=== PATIENT | female | born 1990 | race Caucasian/White ===

== ENCOUNTER 2019-02-09 08:22 | Inpatient (IN) | payer OTHER ==
--- NOTE | 2019-02-05 10:53 | PREOPHP ---
DATE OF ADMISSION: 02/09/2019 HISTORY OF PRESENT ILLNESS: A 27 years old female, 2, para 1 with an EDC of 02/16/2019. The patient is coming on the for the repeat . She had a previous section in 2013 . During this , she had an uneventful . She saw me at 18 weeks and she gained about 25 pounds in this . The was uneventful and she had a low partial pre via at the beginning of the that moved away. Otherwise, she had no complications and she i s scheduled for a repeat . PAST MEDICAL HISTORY: Uneventful except for her . FAMILY HISTORY: Her grandparents were diabetic. ALLERGIES: She is not allergic to any medications. SOCIAL HISTORY: She does not drink or smoke. MEDICATIONS: Currently on no medication except for vitamins. PHYSICAL EXAMINATION: VITAL SIGNS: She is 5 feet 6 inches, her weight is 174 and pulse is 80, respirations 16, and she is afebrile. HEAD AND NECK: Normal. CHEST: Clear. HEART: Normal sinus rhythm. LUNGS: Clear. BREASTS: Soft, nontender, no masses. ABDOMEN: Soft. Uterus at term and heart tones are normal. PELVIC: With no changes. EXTREMITIES: Normal with normal pulses and no edema. DIAGNOSES: 1. Term . 2. Previous section. PLAN: She is undergoing a repeat section. She has been advised of the possible risks and p ossible complications of the procedure with her alternatives and options. Written information was pr ovided. She had no more questions and agreed to go ahead with the procedure with full understanding and no more questions. Dictated By: BOBO HERNANDEZ/RICHARD Conf#: [id number] DID#: [id number]
[2019-02-09] VITALS (9 sets, daily range): BP systolic 93–103; BP diastolic 50–69; PULSE 61–87; RESP 16–20; Ht 162.6 cm; Wt 79.7 kg
[~2019-02-09] VITALS: Ht 162.6 cm; Wt 79.7 kg
[2019-02-09] MEDS ORDERED: MISOPROSTOL 200 MCG TAB PR PRN ×2 (09:00→12:00)
[2019-02-09] MEDS ORDERED: CEFAZOLIN 2 GM/50 ML (PMX) 50 ML IVPB SCH (09:00)
[2019-02-09] MEDS ORDERED: OXYTOCIN 30 UNITS/LR 500 ML IV PRN ×2 (09:00→12:00)
[2019-02-09] MEDS ORDERED: METHYLERGONOVINE 0.2 MG INJ IM PRN ×2 (09:00→12:00)
[2019-02-09] MEDS ORDERED: CARBOPROST 250 MCG INJ IM PRN ×2 (09:00→12:00)
[2019-02-09] MEDS: LACTATED RINGER'S 1,000 ML IV SCH (09:31)
--- NOTE | 2019-02-09 10:42 | PREAC ---
Date/Time of Note Date/Time of Note DATE: 02/09/19 TIME: 10:41 Anesthesia Eval and Record Evaluation Time Pre-Procedure Interview DATE: 02/09/19 TIME: 10:41 Age 28 Sex female NPO: 8 hrs Preoperative diagnosis PREVIOUS C SECTION Planned procedure REPEAT C SECTION Past Medical History Past Medical History: Includes : : (2), Para: (1), Gestational age: (39) Surgery & Anesthesia Issues No known issue Meds Anticoagulation: No Beta Stacy within 24 hr: No Reason Beta Stacy not given: Pt. not on B-Stacy Current Medications Lactated Ringer's 1,000 ml @ 125 mls/hr Q8H IV Last administered on 02/09/19at 09:31; Admin Dose 125 MLS/HR; Start 02/09/19 at 08:56 Cefazolin Sodium/ Dextrose 50 ml @ 100 mls/hr ONCE IVPB ; Start 02/09/19 at 09:00 Oxytocin/Lactated Ringer's 500 ml @ 0 mls/hr ONCE PRN IV .VAGINAL BLEEDING; Start 02/09/19 at 09:00 Methylergonovine Maleate (Methergine) 0.2 mg ONCE PRN IM .VAGINAL BLEEDING; Start 02/09/19 at 09:00 Carboprost Tromethamine (Hemabate) 250 mcg ONCE PRN IM .VAGINAL BLEEDING; Start 02/09/19 at 09:00 Misoprostol (Cytotec) 1,000 mcg ONCE PRN OR .VAGINAL BLEEDING; Start 02/09/19 at 09:00 Meds reviewed: Yes Allergies Coded Allergies: No Known Drug Allergies (Verified Allergy, Unknown, 02/09/19) Allergies Reviewed: Yes Labs/Studies Labs Reviewed: Reviewed by anesthesiologist Result Diagram: 02/09/19907 Laboratory Tests 02/09/19 09:08 test: N/A Pre-procedure Exam Last vitals Vital Signs Date Temp Pulse Resp B/P (MAP) Pulse Ox O2 O2 Flow FiO2 Time Delivery Rate 02/09/19 98.8 87 18 99/55 (70) Room Air 08:54 Airway: Adequate mouth opening, Adequate thyromental dist Mallampati: Mallampati II Teeth: Normal Lung: Normal Heart: Normal ASA Physical Status ASA physical status: 2 Emergency: None Planned Anesthetic Neuraxial: Epidural Planned Pain Management Epidural Pre-operative Attestations Prior to commencing anesthesia and surgery, the patient was re-evaluated, there was verification of: *The patient's identity *The results of appropriate recent lab work and preoperative vital signs *The above evaluation not changing prior to induction *Anesthetic plan, risk benefits, alternative and complications discussed with patient/family; questions answered; patient/family understands, accepts and wishes to proceed. Ankur Guzmán M.D. Feb 09, 2019 10:42
[2019-02-09] MEDS ORDERED: CITRIC ACID/NA CITRATE 30 ML CUP ONE (11:05)
[2019-02-09] MEDS ORDERED: ONDANSETRON 4 MG INJ ONE (11:06)
[2019-02-09] MEDS ORDERED: CITRIC ACID/NA CITRATE 30 ML CUP PO ONE (11:08)
[2019-02-09] MEDS ORDERED: ONDANSETRON 4 MG INJ IV STA (11:08)
[2019-02-09] MEDS: CEFAZOLIN 2 GM/50 ML (PMX) 50 ML IVPB SCH ×2 (11:24→23:24)
[2019-02-09] MEDS ORDERED: OXYTOCIN 10 UNIT INJ ONE (11:27)
[2019-02-09] MEDS ORDERED: morphine SULFATE/PF (10 MG/10 ML) INJ ONE (11:27)
[2019-02-09] MEDS ORDERED: METOCLOPRAMIDE 10 MG INJ ONE (11:27)
[2019-02-09] MEDS ORDERED: OXYTOCIN 30 UNITS/LR 500 ML IV SCH (11:35)
[2019-02-09] MEDS ORDERED: LACTATED RINGER'S 1,000 ML IV SCH (11:35)
--- NOTE | 2019-02-09 11:48 | SIPON ---
Date/Time of Note Date/Time of Note DATE: 02/09/19 TIME: 11:46 Operative Report Preoperative Diagnosis Term Previous Postoperative Diagnosis Same Operation/Procedure Performed Repeat low segment transverse section Surgeon see signature line or first assist registered nurse DR HAAS Anesthesia: spinal Estimated blood loss: other Transfusion Required none Specimen PLACENTA Grafts/Implants none Complications none BOBO JORGENSEN MD Feb 09, 2019 11:48
[2019-02-09] MEDS ORDERED: HYDROCODONE/APAP (5/325) TAB PO PRN ×2 (12:00)
[2019-02-09] MEDS ORDERED: MEPERIDINE 25 MG INJ IV PRN (12:00)
[2019-02-09] MEDS ORDERED: DIPHENHYDRAMINE 50 MG INJ IV PRN ×2 (12:00)
[2019-02-09] MEDS ORDERED: IPRATROPIUM (NEB) 0.5 MG/2.5 ML AMP HHN PRN (12:00)
[2019-02-09] MEDS ORDERED: MIDAZOLAM 1 MG/ML 2 ML INJ IV PRN (12:00)
[2019-02-09] MEDS ORDERED: HYDROmorphONE 1 MG/5 ML IV SYRINGE IV PRN ×3 (12:00)
[2019-02-09] MEDS ORDERED: morphine 2 MG INJ IV PRN ×2 (12:00)
[2019-02-09] MEDS ORDERED: ONDANSETRON 4 MG INJ IV PRN ×2 (12:00)
[2019-02-09] MEDS ORDERED: METHYLERGONOVINE 0.2 MG TAB PO PRN (12:00)
[2019-02-09] MEDS ORDERED: NALBUPHINE HCL (10 MG/1 ML) INJ IV PRN (12:00)
[2019-02-09] MEDS ORDERED: TRIMETHOBENZAMIDE 100 MG/ML VIAL IM PRN ×2 (12:00)
[2019-02-09] MEDS ORDERED: OXYCODONE/ACETAMINOPHEN (5/325) TAB PO PRN ×2 (12:00)
[2019-02-09] MEDS ORDERED: LABETALOL HCL 20MG INJ IV PRN (12:00)
[2019-02-09] MEDS ORDERED: hydrALAzine 20 MG INJ IV PRN (12:00)
[2019-02-09] MEDS ORDERED: KETOROLAC 30 MG INJ IV PRN (12:00)
[2019-02-09] MEDS ORDERED: EPHEDrine 25 MG/5 ML SYG IV PRN (12:00)
[2019-02-09] MEDS ORDERED: FENTAnyl 50 MCG/ML VIAL IV PRN ×3 (12:00)
[2019-02-09] MEDS ORDERED: ALBUTEROL 0.083% (NEB) 2.5 MG/3 ML AMP HHN PRN (12:00)
[2019-02-09] MEDS ORDERED: NALOXONE (0.4 MG/ML) INJ IV PRN (12:00)
[2019-02-09] MEDS ORDERED: NA PHOSPHATE/BIPHOS 133 ML ENEMA PR PRN (12:00)
--- NOTE | 2019-02-09 12:48 | PAC ---
Date/Time of Note Date/Time of Note DATE: 02/09/19 TIME: 12:48 Post-Anesthesia Notes Post-Anesthesia Note Last documented vital signs Vital Signs Date Temp Pulse Resp B/P (MAP) Pulse Ox O2 O2 Flow FiO2 Time Delivery Rate 02/09/19 98.8 87 18 99/55 (70) Room Air 08:54 Activity: WNL Respiratory function: WNL Cardiovascular function: WNL Mental status: Baseline Pain reasonably controlled: Yes Hydration appropriate: Yes Nausea/Vomiting absent: Yes Ankur Guzmán M.D. Feb 09, 2019 12:48
--- NOTE | 2019-02-09 13:23 | OPR ---
DATE OF OPERATION: 02/09/2019 PREOPERATIVE DIAGNOSES: 1. Term . 2. Previous section. POSTOPERATIVE DIAGNOSES: 1. Term . 2. Previous section. 3. Baby boy, 9. PROCEDURE: Repeat low segment transverse section. SURGEON: Bobo Deshpande MD JUNIOR ART DIRECTOR: Dr. Cotter. ANESTHESIA: Dr. Guzmán with an epidural. PROCEDURE: The patient was given a spinal by Dr. Guzmán, placed in the supine position. The abdo men was prepped and draped. A Mei catheter was placed in the bladder. An elliptical incision was made around the previous old scar. The excision of the scar was done because of a keloid scar. The abdomen had been opened about 10 cm in length transversely. The abdominal cavity was reached. The l ower uterine segment was identified. There were adhesions that were lysed and the bladder flap was m jan. The uterus was opened in the midline with a scalpel and the incision was increased laterally on either side for about 3 inches. The baby's head was delivered followed by the body. It was a baby boy, 9. The cord was clamped and cut. The baby was handed over to the sales management intern and the c ord blood was obtained. The placenta was removed. The cervix was opened with the ring forceps and t he cavity was cleaned out. The uterus was closed in 2 layers using #0 PDS looped suture, imbedding t he first line of suture and 0 PDS chromic for reinforcement of small bleeding. Hemostasis was good. The tubes and ovaries were normal. The abdominal cavity was cleaned out. A piece of Interceed was placed in the area of the and the peritoneum was closed with a 2-0 Vicryl suture. The fasc ia was closed with the 0 PDS looped suture, 2-0 Vicryl in 2 layers for the subcutaneous tissue and 3- 0 Monocryl subcuticular to the skin. Dermabond was also applied. The patient tolerated the procedur e well and left the OR awake and stable. Sponge counts and instrument counts were correct. Intraven ous antibiotics were given for prophylaxis. Blood loss was about 500 mL, and the urine was clear at the end of the procedure. Dictated By: BOBO HERNANDEZ/RICHARD Conf#: [id number] [facility]#: [id number]
[2019-02-09] MEDS ORDERED: CEFAZOLIN 1 GM INJ IVPB ONE (15:52)
[2019-02-09] MEDS: SENNA/DOCUSATE NA (8.6MG/50MG) TAB PO SCH (21:00)
[2019-02-10] VITALS: BP 95/60; PULSE 86; RESP 18
[2019-02-10 04:00] VITALS: BP 85/48; PULSE 65; RESP 16
[2019-02-10] MEDS: CEFAZOLIN 2 GM/50 ML (PMX) 50 ML IVPB SCH (07:00)
[2019-02-10 07:50] VITALS: BP 81/46; PULSE 77; RESP 16
[2019-02-10] MEDS: LANOLIN HPA 1 PKT TOP PRN (08:24)
[2019-02-10] MEDS: SENNA/DOCUSATE NA (8.6MG/50MG) TAB PO SCH ×2 (08:24→21:46)
[2019-02-10] MEDS: LACTATED RINGER'S 1,000 ML IV SCH ×3 (08:56→09:53)
--- NOTE | 2019-02-10 10:54 | PN ---
Date/Time of Note Date/Time of Note DATE: 02/10/19 TIME: 10:53 Assessment/Plan Lines/Catheters IV Catheter Type (from Nrsg): Peripheral IV Subjective 24 Hr Interval Summary Post day 1. Afebrile, with some pain relieved by medications Encouraged ambulation. Uterus contracted, CBC lochia normal ,incision healing good.. Normal CBC. Constitutional: improved Feeding: advancing diet Pain Control: well controlled Detailed Summary Eyes: no complaints ENT: no complaints Respiratory: no complaints Cardiovascular: no complaints Gastrointestinal: no complaints Genitourinary: no complaints Musculoskeletal: no complaints Skin: no complaints Neurologic: no complaints Endocrine: no complaints Lymphatic: no complaints Psychological: no complaints, nl mood/affect Immunologic: no complaints Exam/Review of Systems Vital Signs Vitals Vital Signs Date Temp Pulse Resp B/P (MAP) Pulse Ox O2 O2 Flow FiO2 Time Delivery Rate 02/10/19 98.3 77 16 81/46 (58) 98 Room Air 07:50 Intake and Output 02/09/19 02/09/19 02/10/19 1515:00 23:00 07:00 IntakeIntake Total 500 ml OutputOutput Total 2145 ml 450 ml BalanceBalance -1645 ml -450 ml Exam Constitutional: alert, oriented, well developed Psych: no complaints, nl mood/affect Head: normocephalic, atraumatic Eyes: nl conjunctiva, EOMI, nl lids, nl sclera ENMT: nl external ears & nose, nl lips & teeth, nl nasal mucosa & septum, mucosa pink and moist Neck: supple, non-tender Respiratory: clear to auscultation, normal air movement Cardiovascular: regular rate and rhythm, nl pulses Gastrointestinal: soft, nl liver, spleen, non-tender Musculoskeletal: nl extremities to inspection, nl gait and stance Extremities: normal pulses Neurological: CIVIL MANAGER II-XII intact, nl mental status, nl speech, nl strength Skin: nl turgor, rash or lesions Lymph: nl lymph nodes Results Result Diagram: 02/10/19 0717 BOBO JORGENSEN MD Feb 10, 2019 10:54
[2019-02-10 12:00] VITALS: BP 83/47; PULSE 63; RESP 16
[2019-02-10] MEDS ORDERED: CEFAZOLIN 2 GM/50 ML (PMX) 50 ML IVPB SCH (13:00)
[2019-02-10] MEDS: IBUPROFEN 800 MG TAB PO SCH ×2 (14:29→21:46)
[2019-02-10 16:49] VITALS: BP 113/68; PULSE 68; RESP 18
[2019-02-10 20:00] VITALS: BP 99/66; PULSE 61; RESP 18
[2019-02-11 04:00] VITALS: BP 90/52; PULSE 62; RESP 16
[2019-02-11] MEDS: IBUPROFEN 800 MG TAB PO SCH ×3 (05:32→22:47)
[2019-02-11 08:00] VITALS: BP 107/50; PULSE 68; RESP 18
[2019-02-11] MEDS: SENNA/DOCUSATE NA (8.6MG/50MG) TAB PO SCH ×2 (08:43→22:47)
--- NOTE | 2019-02-11 10:45 | HPN ---
Date/Time of Note Date/Time of Note DATE: 02/11/19 TIME: 10:43 Interval H&P Admission Note Pt. seen H&P reviewed: No system changes BOBO JORGENSEN MD Feb 11, 2019 10:45
--- NOTE | 2019-02-11 13:43 | PN ---
Date/Time of Note Date/Time of Note DATE: 02/11/19 TIME: 13:41 Assessment/Plan Lines/Catheters IV Catheter Type (from Nrsg): Saline Lock Subjective 24 Hr Interval Summary Day 2 post Afebrile. Feels good. Incision dry Uterus contracted Tolerating diet Passing gases Breast-feeding Encouraged ambulation Feeding: advancing diet Pain Control: mild Detailed Summary Eyes: no complaints ENT: no complaints Respiratory: no complaints Cardiovascular: no complaints Gastrointestinal: no complaints Genitourinary: no complaints Musculoskeletal: no complaints Skin: no complaints Neurologic: no complaints Endocrine: no complaints Lymphatic: no complaints Psychological: no complaints, nl mood/affect Immunologic: no complaints Exam/Review of Systems Vital Signs Vitals Vital Signs Date Temp Pulse Resp B/P (MAP) Pulse Ox O2 O2 Flow FiO2 Time Delivery Rate 02/11/19 98.2 68 18 107/50 Room Air 08:00 (69) 02/10/19 99 12:00 Intake and Output 02/10/19 02/10/19 02/11/19 1515:00 23:00 07:00 IntakeIntake Total 3625 ml 600 ml OutputOutput Total 2400 ml 800 ml BalanceBalance 1225 ml -200 ml Results Result Diagram: 02/10/19 0717 BOBO JORGENSEN MD Feb 11, 2019 13:42
[2019-02-11] MEDS ORDERED: BISACODYL (EC) 5 MG TAB PO ONE (14:00)
[2019-02-11 16:40] VITALS: BP 107/58; PULSE 59; RESP 18
[2019-02-11 19:30] VITALS: BP 102/64; PULSE 76; RESP 19
[2019-02-11] MEDS: LANOLIN HPA 1 PKT TOP PRN (22:47)
[2019-02-12 04:35] VITALS: BP 104/60; PULSE 62; RESP 18
[2019-02-12] MEDS: IBUPROFEN 800 MG TAB PO SCH (05:15)
[2019-02-12 08:19] VITALS: BP 127/69; PULSE 74; RESP 20
[2019-02-12] MEDS ORDERED: DIPHTH/TET/ACEL PERTUSS (ADULT) 0.5 ML VIAL IM* ONE (09:00)
[2019-02-12] MEDS ORDERED: MEASLES,MUMPS,RUBELLA VACCINE INJ SC* ONE (09:00)
[2019-02-12] MEDS: SENNA/DOCUSATE NA (8.6MG/50MG) TAB PO SCH (09:00)
--- NOTE | 2019-02-12 11:33 | PD.PPDC ---
MILL CONTROL OPERATOR Discharge Instruction Condition [id number] Patient Condition: Punpa2s Good Diet [id number] Diet: Lvsaf7s Resume Regular Diet Activity/Restrictions [id number] Activity: Zahyo5a Normal Activity Mehie7Fz Restrictions: Rkyhr2s No Exercising No Lifting No Driving No Sexual Activity Nothing in the Vagina No [place] No Tampons, douche Wound/Drain Care Instructions [id number] Wound/Drain Care Instructions: Gwfev9s Wash with soap and water Keep clean and dry Follow-up Follow-up with Physician: 1, Week/Weeks Return to clinic for [id number] SEAT TRIMMER Instructions: Esokv1q Fever greater than 101 Chills Worsening abdominal pain Excessive Vaginal Bleeding More than 2 pads per hour Unable to tolerate diet [id number] OB Instructions: Njpcg2j Breast Tenderness Depression Blurried Vision Headache [id number] Surgical Instructions: Gcdlw7p Incisional Drainage Incisional Redness BOBO JORGENSEN MD Feb 12, 2019 11:33
--- NOTE | 2019-02-12 11:39 | DS ---
Date/Time of Note Date/Time of Note DATE: 02/12/19 TIME: 11:34 Obstetrical Discharge Record Final Diagnosis Final Diagnosis: Term delivered Section Section: Repeat Condition on Discharge Physical Assessment Last Vitals: vitals were normal patient did very well postop discharged voiding well tolerating diet and had a bowel movement to see me in office in a week Voiding: Yes Bowel Movement: Yes Breast: Soft, non-tender, Filling Fundus: Firm Abdomen and Incision: healing well Calf Tenderness: No Patient Condition: Good BOBO JORGENSEN MD Feb 12, 2019 11:39
--- NOTE | 2019-02-13 13:23 | DELSUM ---
Delivery Summary A-C Datetime Report Generated by CPN: 02/13/2019 13:23 DELIVERY PERSONNEL Transition Mgr: Han, Neeru MATERNAL INFORMATION Delivery Anesthesia: Spinal Medications in Delivery: SEE ANESTHESIA NOTE Delivery QBL (ml): 500 Placenta Cultured: No Maternal Complications: None LABOR SUMMARY EDC: 02/16/2019 00:00 No. Babies in Womb: 1 Attempted: No Labor Anesthesia: None LABOR INFORMATION Reason for Induction: Not Applicable Oxytocin: N/A Group B Beta Strep: Negative Antibiotics # of Doses: 1 Antibiotics Time of Last Dose: 02/09/2019 11:24 Steroids Given: None Reason Steroids Not Administered: Not Applicable MEMBRANES Membranes Rupture Method: Artificial Rupture of Membranes: 02/09/2019 12:00 Length of Rupture (hr): 0.02 Amniotic Fluid Color: Clear Amniotic Fluid Amount: Moderate Amniotic Fluid Odor: None STAGES OF LABOR Stage 3 hr: 0 Stage 3 min: 1 CSECTION DELIVERY Primary Indication: Repeat Elective CSection Urgency: Non Elective CSection Incidence: Repeat Labor: No Labor Elective: Nonelective CSection Incision: Lower Uterine Transverse BABY A INFORMATION Delivery Date/Time: 02/09/2019 12:01 Method of Delivery: Born in Route : No : N/A Forceps: N/A Vacuum Extraction: N/A Shoulder Dystocia : N/A SHOULDER DYSTOCIA BABY A Infant Delivery Date/Time: 02/09/2019 12:01 PRESENTATION/POSITION BABY A Presentation: Cephalic Cephalic Presentation: Vertex Vertex Position: N/A Breech Presentation: N/A PLACENTA INFORMATION BABY A Placenta Delivery Time : 02/09/2019 12:02 Placenta Method of Delivery: Manual Removal Placenta Status: Delivered SCORES BABY A Heart Rate 1 min: >100 bpm Resp Effort 1 min: Good Cry Reflex Irritability 1 min: Cough/Sneeze/Pulls Away Muscle Tone 1 min: Active Motion Color 1 min: Body Blue Sky, Extremit Blue Resuscitation Effort 1 min: Tactile Stimulation SCORE 1 MIN: 9 Heart Rate 5 min: >100 bpm Resp Effort 5 min: Good Cry Reflex Irritability 5 min: Cough/Sneeze/Pulls Away Muscle Tone 5 min: Active Motion Color 5 min: Body Blue Sky, Extremit Blue Resuscitation Effort 5 min: Tactile Stimulation SCORE 5 MIN: 9 INFORMATION BABY A Gestational Age at Delivery: 39.0 Gestational Status: Full Term- 39- 40.6 Weeks Infant Outcome : Liveborn Infant Condition : Stable Infant Sex: Male IDENTIFICATION/MEDS BABY A ID Band Number: [id number] ID Band Location: Right Leg; Left Arm Sensor Applied: Yes Sensor Number: [id number] Sensor Location : Cord Clamp Vitamin K Given : Not Given Erythromycin Given: Not Given WEIGHT/LENGTH BABY A Birthweight (gm): 3205 Weight (lb): 7 Infant Weight (oz): 1 Length (in): 21.00 Length (cm): 53.34 CORD INFORMATION BABY A No. Cord Vessels: 3 Nuchal Cord : N/A Cord Blood Taken: Yes Infant Suction: Mouth; Nose ASSESSMENT BABY A Infant Complications: None Physical Findings at Delivery: Within Normal Limits Infant Respirations: Appears Normal Inker/ALS Called : Yes Infant Care By: RT Transferred To: Remains with Mother
== END 2019-02-12 12:50 | disposition home or self-care (01) | DRG 788 ==
LOC: L-D 08:22 → PP1 15:50
PROVIDERS: ADMIT Obstetrics & Gynecology; ATTEND Obstetrics & Gynecology
PROC: 10D00Z1 Extraction of Products of Conception, Low, Open Approach (ICD-10-PCS; principal; 2019-02-09 10:30)
DX: O65.5 Obstructed labor due to abnormality of maternal pelvic organs (principal); O34.211 Maternal care for low transverse scar from previous cesarean delivery; Z3A.39 39 weeks gestation of pregnancy; Z37.0 Single live birth
CPT/HCPCS: 85025; 85610; 85730; 86592; 86850; 86900; 86901; 90715; 99464; J0690; J1885; J2210; J2274; J2405; J2590; J2765; J7120